=== PATIENT | female | born 1970 | race Caucasian/White ===

== ENCOUNTER → 2016-10-12 | Outpatient (CLI) | payer OTHER ==
[2016-10-12 17:52] LABS: HEMATOCRIT 38.6 % (37.0-47.0); HEMOGLOBIN 13.2 g/dL (12.0-16.0); MEAN CORPUSCULAR HEMOGLOBIN 29.4 PG (27-31); MEAN CORPUSCULAR HGB CONC 34.2 g/dL (33-37); MEAN PLATELET VOLUME 10.9 FL (7.4-12.2); RED BLOOD COUNT 4.49 10^6/uL (4.20-5.40)
[2016-10-12 17:58] LABS: BLOOD UREA NITROGEN 13 mg/dL (7-22); BUN/CREATININE RATIO 16.25 (6-20); CALCIUM 9.9 mg/dL (8.7-10.7); CHOL/HDL RATIO 2.68 RATIO (0-4.0); EST GLOMERULAR FILTRATION > 60 (>60 ml/min/1.73m(2)); HDL CHOLESTEROL 70 mg/dL (40-150); SERUM ALBUMIN 3.9 g/dL (3.5-4.8); SERUM CHOLESTEROL 188 mg/dL (120-200)
[2016-10-12 18:03] LABS: HEMOGLOBIN A1C 5.68 % (4.2-6.0)
[2016-10-12 19:08] LABS: FREE T4 (FREE THYROXINE) 1.16 ng/dL (0.93-1.71)
== END ==
LOC: LAB 08:07
PROVIDERS: ATTEND Nurse Practitioner Women's Health
DX: Z01.411 Encounter for gynecological examination (general) (routine) with abnormal findings (principal); R73.02 Impaired glucose tolerance (oral); I10 Essential (primary) hypertension; Z68.34 Body mass index [BMI] 34.0-34.9, adult; F32.9 Major depressive disorder, single episode, unspecified
CPT/HCPCS: 80053; 80061; 83036; 84439; 84443; 84481; 85027